=== PATIENT | male | born 1980 | race Caucasian/White ===

== ENCOUNTER 2017-02-11 02:23 | Emergency (ER) | payer OTHER ==
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
--- NOTE | 2017-02-11 03:23 | ED ORDER SUMMARY ---
..... Patient: STEVEN KELLER OrderSheet [facility] VisitID: [id number] [place] [address] 36y, M Registration Date/Time: 02/11/2017 ORDER SHEET Weight: 99.7 kg (stated) Allergies: No Known Drug Allergy GENERAL ORDERS: MEDICATION ORDERS: Proparacaine Eye Drops (Solution 0.5 %) 2 drops (NOW, affected eye, right eye, place at bedside) (02:41 02/11/2017 Juan Ramon R.N. verbal order read back to Shweta RIVERA) (2:46 Juan Ramon R.N.) Fluorescein Eye Strips 2 strips (NOW) (02:42 02/11/2017 Juan Ramon Grace.Marisol verbal order read back to Shweta RIVERA) (2:47 Juan Ramon R.N.) Oxycodone-APAP PO 10/650 mg (NOW) (03:22 02/11/2017 Shweta RIVERA) (3:25 Juan Ramon R.N.) IV FLUIDS: ORDER SHEET NOTES: [Electronically signed by Sheriff Yamilet Olmedo (03:32 02/11/2017)] [Electronically signed by Uriah Norris MD (00:27 02/15/2017)] [Electronically locked/signed by Sheriff Yamilet Olmedo (03:32 02/11/2017)]
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
--- NOTE | 2017-02-11 03:23 | ED ORDER SUMMARY ---
..... Patient: STEVEN KELLER OrderSheet [facility] VisitID: [id number] [place] [address] 36y, M Registration Date/Time: 02/11/2017 ORDER SHEET Weight: 99.7 kg (stated) Allergies: No Known Drug Allergy GENERAL ORDERS: MEDICATION ORDERS: Proparacaine Eye Drops (Solution 0.5 %) 2 drops (NOW, affected eye, right eye, place at bedside) (02:41 02/11/2017 Juan Ramon R.N. verbal order read back to Shweta RIVERA) (2:46 Juan Ramon R.N.) Fluorescein Eye Strips 2 strips (NOW) (02:42 02/11/2017 Juan Ramon Grace.Marisol verbal order read back to Shweta RIVERA) (2:47 Juan Ramon R.N.) Oxycodone-APAP PO 10/650 mg (NOW) (03:22 02/11/2017 Shweta RIVERA) (3:25 Juan Ramon R.N.) IV FLUIDS: ORDER SHEET NOTES: [Electronically signed by Sheriff Yamilet Olmedo (03:32 02/11/2017)] [Electronically signed by Uriah Norris MD (00:27 02/15/2017)] [Electronically locked/signed by Sheriff Yamilet Olmedo (03:32 02/11/2017)]
--- NOTE | 2017-02-15 00:27 | ED MAR SUMMARY ---
..... Medication Administration Record [facility] [address] [place] [address] Patient: STEVEN KELLER Visit ID: [id number] 36y, M Weight: 99.7 kg Height/Length: 75 in BMI: 27.5 ALLERGIES: No Known Drug Allergy Given 02:36 02/11/2017 Nelson Wilson RJaclynN. Medication Administered: PROPARACAINE [EYE DROPS], Dose: 2 drop Opthalmic solution Eye Drops. Medication Ordered: Proparacaine Eye Drops (Solution 0.5 %) 2 drops (NOW, affected eye, right eye, place at bedside). Given 02:36 02/11/2017 Nelson Wilson R.N. Medication Administered: FLUORESCEIN [EYE STRIPS], Dose: 2 Strip Opth soln. Medication Ordered: Fluorescein Eye Strips 2 strips (NOW). Given 03:02/11/2017 Nelson Wilson, R.N. Medication Administered: OXYCODONE-APAP [PO] (OXYCODONE-ACETAMINOPHEN), Dose: 2 tab 5/325 mg Tablets PO. Medication Ordered: Oxycodone-APAP PO 10/650 mg (NOW).
--- NOTE | 2017-02-15 00:27 | ED DISCHARGE INSTRUCTIONS ---
Patient: STEVEN KELLER General Instructions [facility] VisitID: [id number] [place] [address] 36y, M Registration Date/Time: 02/11/2017 Removed corneal foreign body right eye with rust ring. INSTRUCTIONS Return to work tomorrow (Avoid dangerous equipment until eye pain resolved.). Warnings: Further evaluation is necessary. GENERAL WARNINGS: Return or contact your physician immediately if your condition worsens or changes unexpectedly, if not improving as expected, or if other problems arise. Prescription Medications: Gentamicin ophthalmic ointment 0.3% : Apply 1/2 inch to inner aspect of the lower lid on the affected eye every 8 hours for 1 week. Dispense three and one half (3.5) gm. No refills. Oxycodone/APAP 5 mg/325 mg: take 1-2 tablets orally every 4 hours as needed for pain. Dispense twenty (20). No refill. Follow-up: Follow up with your doctor in two days. Call for the next available appointment. Understanding of the discharge instructions verbalized by patient and family. Discharge instructions reviewed with and understanding was verbalized by spouse. ADDITIONAL INFORMATION Particle Removed From Eyewith Rust Ring [Corneal F.B.] The metal particle that got into your eye stuck to the cornea (the clear part in front of your eye). This sensitive area is very painful when injured. However, it heals rapidly and the pain disappears within 24-48 hours. Although the metal particle may have been removed, the salty tears have caused the metal to rust and form a stain in the cornea. Many times it is not possible to completely remove a rust ring on the first visit. Therefore, you may have to return to this facility or be referred to an 4 h youth development specialist for further treatment. Home Care: A cold pack (ice in a plastic bag, wrapped in a towel) may be applied over the eye for 20 minutes at a time to reduce pain. You may use acetaminophen (Tylenol) or ibuprofen (Motrin, Advil) to control pain, unless another medicine was prescribed. [NOTE: If you have chronic liver or kidney disease or ever had a stomach ulcer or GI bleeding, talk with your doctor before using these medicines.] If an EYE PATCH was applied: You may place the ice pack directly over the eye-patch. If you were given a return appointment for patch removal and re-exam, do not miss it. An eye patch should not be left in place for more than 48 hours, unless advised to do so by your doctor. DO NOT DRIVE a motor vehicle or operate machinery with the patch in place since you will have difficulty in judging distances with only one eye. If eye drops or ointment was prescribed, take as directed. Follow Up: If no patch was used but the pain continues for more than 48 hours, you should have another exam. Return to this facility or contact the referral doctor to arrange this. If your eye was patched and if you were asked to remove the patch yourself, see your doctor or return to this facility if your pain is still present after removal. If you were given a return appointment for patch removal and re-exam, do not miss this. It could be harmful if the patch remains in place longer than advised. Get Prompt Medical Attention if any of the following occur: Increasing eye pain or pain that does not improve after 24 hours Discharge from the eye Redness of the eye or swelling of the eyelids Worsening vision Oxycodone Hydrochloride, Acetaminophen Oral tablet What is this medicine? ACETAMINOPHEN; OXYCODONE (a set a KJ janice fen; ox i KOE done) is a pain reliever. It is used to treat mild to moderate pain. How should I use this medicine? Take this medicine by mouth with a full glass of water. Follow the directions on the prescription label. Take your medicine at regular intervals. Do not take your medicine more often than directed. Talk to your ophthalmic medical technician regarding the use of this medicine in children. Special care may be needed. Patients over 65 years old may have a stronger reaction and need a smaller dose. What side effects may I notice from receiving this medicine? Side effects that you should report to your doctor or health home health care case manager as soon as possible: allergic reactions like skin rash, itching or hives, swelling of the face, lips, or tongue breathing difficulties, wheezing confusion light headedness or fainting spells severe stomach pain yellowing of the skin or the whites of the eyes Side effects that usually do not require medical attention (report to your doctor or health home health care case manager if they continue or are bothersome): dizziness drowsiness nausea vomiting What may interact with this medicine? alcohol antihistamines barbiturates like amobarbital, butalbital, butabarbital, methohexital, pentobarbital, phenobarbital, thiopental, and secobarbital benztropine drugs for bladder problems like solifenacin, trospium, oxybutynin, tolterodine, hyoscyamine, and methscopolamine drugs for breathing problems like ipratropium and tiotropium drugs for certain stomach or intestine problems like propantheline, homatropine methylbromide, glycopyrrolate, atropine, belladonna, and dicyclomine general anesthetics like etomidate, ketamine, nitrous oxide, propofol, desflurane, enflurane, halothane, isoflurane, and sevoflurane medicines for depression, anxiety, or psychotic disturbances medicines for sleep muscle relaxants naltrexone narcotic medicines (opiates) for pain phenothiazines like perphenazine, thioridazine, chlorpromazine, mesoridazine, fluphenazine, prochlorperazine, promazine, and trifluoperazine scopolamine tramadol trihexyphenidyl What if I miss a dose? If you miss a dose, take it as soon as you can. If it is almost time for your next dose, take only that dose. Do not take double or extra doses. Where should I keep my medicine? Keep out of the reach of children. This medicine can be abused. Keep your medicine in a safe place to protect it from theft. Do not share this medicine with anyone. Selling or giving away this medicine is dangerous and against the law. Store at room temperature between 20 and 25 degrees C (68 and 77 degrees F). Keep container tightly closed. Protect from light. This medicine may cause accidental overdose and if it is taken by other adults, children, or pets. Flush any unused medicine down the toilet to reduce the chance of harm. Do not use the medicine after the expiration date. What should I tell my health care provider before I take this medicine? They need to know if you have any of these conditions: brain tumor Crohn's disease, inflammatory bowel disease, or ulcerative colitis drink more than 3 alcohol containing drinks per day drug abuse or addiction head injury heart or circulation problems kidney disease or problems going to the bathroom liver disease lung disease, asthma, or breathing problems an unusual or allergic reaction to acetaminophen, oxycodone, other opioid analgesics, other medicines, foods, dyes, or preservatives or trying to get breast-feeding What should I watch for while using this medicine? Tell your doctor or health home health care case manager if your pain does not go away, if it gets worse, or if you have new or a different type of pain. You may develop tolerance to the medicine. Tolerance means that you will need a higher dose of the medication for pain relief. Tolerance is normal and is expected if you take this medicine for a long time. Do not suddenly stop taking your medicine because you may develop a severe reaction. Your body becomes used to the medicine. This does NOT mean you are addicted. Addiction is a behavior related to getting and using a drug for a non-medical reason. If you have pain, you have a medical reason to take pain medicine. Your doctor will tell you how much medicine to take. If your doctor wants you to stop the medicine, the dose will be slowly lowered over time to avoid any side effects. You may get drowsy or dizzy. Do not drive, use machinery, or do anything that needs mental alertness until you know how this medicine affects you. Do not stand or sit up quickly, especially if you are an older patient. This reduces the risk of dizzy or fainting spells. Alcohol may interfere with the effect of this medicine. Avoid alcoholic drinks. There are different types of narcotic medicines (opiates) for pain. If you take more than one type at the same time, you may have more side effects. Give your health care provider a list of all medicines you use. Your doctor will tell you how much medicine to take. Do not take more medicine than directed. Call emergency for help if you have problems breathing. The medicine will cause constipation. Try to have a bowel movement at least every 2 to 3 days. If you do not have a bowel movement for 3 days, call your doctor or health home health care case manager. Do not take Tylenol (acetaminophen) or medicines that have acetaminophen with this medicine. Too much acetaminophen can be very dangerous. Many nonprescription medicines contain acetaminophen. Always read the labels carefully to avoid taking more acetaminophen. You have been given the following additional information: Corneal Foreign Body, Removed, W/ Rust Ring Oxycodone Hydrochloride, Acetaminophen Oral tablet Return to work tomorrow (Avoid dangerous equipment until eye pain resolved.). (Electronically signed by Uriah Norris MD 02/15/2017 0:27)
--- NOTE | 2017-02-15 00:27 | ED MED RECONCILIATION SUMMARY ---
Patient: STEVEN KELLER Medication Reconciliation Report [facility] VisitID: [id number] [place] [address] 36y, M Registration Date/Time: 02/11/2017 Weight: 99.7 kg Height/Length: 75 in. BMI: 27.5 ALLERGIES: No Known Drug Allergy The patient's Home Medications are listed below: NONE. The source(s) of the original Home Medication information: patient The following Medications were given to the patient in the Emergency Department: Proparacaine [Eye Drops] Eye Drops 2 drop, administered: 02/11/2017 2:36:00 AM FLUORESCEIN [EYE STRIPS] Opth soln 2 Strip, administered: 02/11/2017 2:36:00 AM Oxycodone-APAP [PO] PO 2 tab, administered: 02/11/2017 3:25:00 AM The following Medications were prescribed to the patient: Gentamicin ophthalmic ointment 0.3% : Apply 1/2 inch to inner aspect of the lower lid on the affected eye every 8 hours for 1 week. Dispense three and one half (3.5) gm. No refills. -- Uriah Norris MD Oxycodone/APAP 5 mg/325 mg: take 1-2 tablets orally every 4 hours as needed for pain. Dispense twenty (20). No refill. -- Uriah Norris MD
--- NOTE | 2017-02-15 00:27 | ED MED RECONCILIATION SUMMARY ---
Patient: STEVEN KELLER Medication Reconciliation Report [facility] VisitID: [id number] [place] [address] 36y, M Registration Date/Time: 02/11/2017 Weight: 99.7 kg Height/Length: 75 in. BMI: 27.5 ALLERGIES: No Known Drug Allergy The patient's Home Medications are listed below: NONE. The source(s) of the original Home Medication information: patient The following Medications were given to the patient in the Emergency Department: Proparacaine [Eye Drops] Eye Drops 2 drop, administered: 02/11/2017 2:36:00 AM FLUORESCEIN [EYE STRIPS] Opth soln 2 Strip, administered: 02/11/2017 2:36:00 AM Oxycodone-APAP [PO] PO 2 tab, administered: 02/11/2017 3:25:00 AM The following Medications were prescribed to the patient: Gentamicin ophthalmic ointment 0.3% : Apply 1/2 inch to inner aspect of the lower lid on the affected eye every 8 hours for 1 week. Dispense three and one half (3.5) gm. No refills. -- Uriah Norris MD Oxycodone/APAP 5 mg/325 mg: take 1-2 tablets orally every 4 hours as needed for pain. Dispense twenty (20). No refill. -- Uriah Norris MD
--- NOTE | 2017-02-15 00:27 | ED MAR SUMMARY ---
..... Medication Administration Record [facility] [address] [place] [address] Patient: STEVEN KLELER Visit ID: [id number] 36y, M Weight: 99.7 kg Height/Length: 75 in BMI: 27.5 ALLERGIES: No Known Drug Allergy Given 02:36 02/11/2017 Nelson Wilson RJaclynN. Medication Administered: PROPARACAINE [EYE DROPS], Dose: 2 drop Opthalmic solution Eye Drops. Medication Ordered: Proparacaine Eye Drops (Solution 0.5 %) 2 drops (NOW, affected eye, right eye, place at bedside). Given 02:36 02/11/2017 Nelson Wilson R.N. Medication Administered: FLUORESCEIN [EYE STRIPS], Dose: 2 Strip Opth soln. Medication Ordered: Fluorescein Eye Strips 2 strips (NOW). Given 03:02/11/2017 Nelson Wilson, R.N. Medication Administered: OXYCODONE-APAP [PO] (OXYCODONE-ACETAMINOPHEN), Dose: 2 tab 5/325 mg Tablets PO. Medication Ordered: Oxycodone-APAP PO 10/650 mg (NOW).
== END 2017-02-11 03:28 | disposition home or self-care (01) ==
LOC: ED SRH 02:23
DX: T15.01XA Foreign body in cornea, right eye, initial encounter (principal); W22.8XXA Striking against or struck by other objects, initial encounter; Y93.9 Activity, unspecified; Y99.0 Civilian activity done for income or pay; Y92.9 Unspecified place or not applicable